=== PATIENT | female | born 1985 | race Asian ===

== ENCOUNTER 2017-03-17 04:30 | Inpatient (IN) | payer OTHER ==
[2017-03-17] MEDS: ELECTROLYTE-148 SOLN 1,000 ML IV SCH ×2 (05:00→10:08)
[2017-03-17] MEDS ORDERED: BUTORPHANOL TARTRATE 1 MG/ML VIAL IVPB ONE (05:26)
[2017-03-17] MEDS ORDERED: PROMETHAZINE HCL 25 MG/1 ML VIAL IVPB ONE (05:26)
[2017-03-17 05:45] LABS: BASOPHIL 0.5 % (0-2.0); EOSINOPHIL 0.5 % (0-4.5); MCH 23.4 pg (25.7-33.7); MCHC 32.6 g/dl (32.0-36.0); MEAN CELL VOLUME 71.9 fl (80-96); MEAN PLT VOLUME 7.9 fl (7.5-11.1); NEUTROPHILS 81.2 % (42.8-82.8); PLATELET COUNT 280 K/MM3 (134-434); RDW 16.7 % (11.6-15.6); WHITE BLOOD COUNT 10.6 K/mm3 (4.0-10.0)
[2017-03-17 05:47] VITALS: BMI 33.8
[2017-03-17 05:57] LABS: INR 0.93 (0.82-1.09); PROTHROMBIN TIME (PATIENT) 10.2 SEC (9.98-11.88)
[2017-03-17 06:07] LABS: ANION GAP 13 (8-16); CALCIUM 8.4 mg/dL (8.5-10.1); CO2 19 mmol/L (21-32); CREATININE 0.6 mg/dL (0.55-1.02); GLUCOSE,RANDOM 107 mg/dL (74-106)
--- NOTE | 2017-03-17 07:19 | HP ---
Past Medical History - Primary Care Physician PCP:: Damaris Jesus - Admission Chief Complaint: 31 yo P2 @ 39.3 wks with contractions, no VB, no LOF, + FM History Source: Patient Limitations to Obtaining History: No Limitations - Past Medical History ...: 3 ...Para: 2 ...Term: 2 ...LMP: 06/07/16 ... Weeks Gestation by Dates: 39.3 ...EDC by Dates: 03/13/17 ...EDC by Sono: 03/21/17 Additional OB History: Morbid obesity - Past Surgical History Past Surgical History: Yes: None Hx Myomectomy: No Hx Transabdominal Cerclage: No - Smoking History Smoking history: Never smoked Have you smoked in the past 12 months: No - Alcohol/Substance Use Hx Alcohol Use: No History of Substance Use: reports: None - Social History History of Recent Travel: No Home Medications - Allergies Allergies/Adverse Reactions: Allergies Allergy/AdvReac Type Severity Reaction Status Date / Time apple Allergy Intermediate Itching Verified 09/06/15 08:13 No Known Drug Allergies Allergy Verified 09/06/15 08:13 - Home Medications Home Medications: Ambulatory Orders Tablet 1 tab PO DAILY 09/05/15 Physical Exam - Maternity Vital Signs: Vital Signs Temperature 98.4 F 03/17/17 06:00 Pulse Rate 104 H 03/17/17 07:00 Respiratory Rate 20 03/17/17 07:00 Blood Pressure 124/78 03/17/17 07:00 O2 Sat by Pulse Oximetry (%) Constitutional: Yes: Well Nourished Eyes: Yes: WNL HENT: Yes: WNL Neck: Yes: WNL Cardiovascular: Yes: WNL Breast(s): Yes: WNL - Abdominal Exam/OB Fundal Height: 39 (EFW 7lb) Number of Fetuses: Single Presentation: Vertex Contractions: Yes Regularity: Regular Intensity: Mild/Mod Monitor Mode: External Heart Rate Location: Midline Category: I Accelerations: Uniform Decelerations: None - Vaginal Exam/OB Vaginal Bleediing: No Dilatation (cm): 5 Effacement (%): 90% Amniotic Membrane Status: Intact Presentation: Vertex/Position Station: -3 - Physical Exam Musculoskeletal: Yes: WNL Extremities: Yes: WNL Edema: No Integumentary: Yes: WNL ...Motor Strength: WNL Psychiatric: Yes: WNL - Labs Lab Results: CBC, BMP 03/17/17 05:10 03/17/17 05:10 Assessment/Plan 31yo P2 @ 39.3wks in labor Admit to L&D MF status reassuring Labs, IVF Pain management as per patient request Anticipate
[2017-03-17] MEDS ORDERED: FENTANYL/BUPIVACAINE/NS/PF - PCEA - 50 ML DISP.SYRIN EP SCH (08:15)
[2017-03-17] MEDS ORDERED: TUBERCULIN PPD 5 TU/0.1ML SYRINGE (IN PATIENT USE ONLY) ID ONE (08:30)
[2017-03-17 10:53] LABS: HIV 1 & 2 AB NEGATIVE; HIV 1 AGp24 NEGATIVE
[2017-03-17] MEDS: D5W-LR W/ 20 UNITS OXYTOCIN 1,000 ML IV SCH ×2 (11:45→13:12)
[2017-03-17] MEDS ORDERED: BISACODYL 10 MG SUPP.RECT RC PRN (11:58)
[2017-03-17] MEDS ORDERED: WITCH HAZEL 50% (TUCKS) 40 PAD/JAR PAD TP PRN (11:58)
[2017-03-17] MEDS ORDERED: BENZOCAINE 28 GM HEMORRHOIDAL OINTMENT TP PRN (11:58)
[2017-03-17] MEDS ORDERED: BENZOCAINE 20% 57 GM BOTTLE TP PRN (11:58)
[2017-03-17] MEDS ORDERED: METHYLERGONOVINE MALEATE 0.2 MG/1 ML AMP IM PRN (11:58)
--- NOTE | 2017-03-17 12:06 | PN ---
Delivery - Delivery Vaginal Delivery: No Problems, Spontaneous Type of Anesthesia: Epidural Episiotomy/Laceration: None, 1st degree EBL (cc): 200 Delivery, Single - Stages of Labor Date 1st Stage Initiatied: 03/16/17 Time 1st Stage Initiated: 23:55 Date 2nd Stage Initiated: 03/17/17 Time 2nd Stage Initiated: 11:30 Date of Delivery: 03/17/17 Time of Delivery: 11:38 Date Placenta Delivered: 03/17/17 Time Placenta Delivered: 11:45 Placenta: Yes: Spontaneous - Condition of Used Car Manager/Switchboard And Control Room Operator Present: No Gender: Male Position: OA - 1 Minute Total Score: 8 5 Minutes Total Score: 9 - Feeding Plan Initial Plan: Elected not to breastfeed exclusively throughout hospitalization Benefits of Exclusively reinforced: Yes Remarks - Remarks Remarks: Uncomplicated delivery of the head and shoulders no cord around the neck + meconium noted, baby vigorous attended by the nurses
[2017-03-17] MEDS: IBUPROFEN 600 MG TABLET (FP) PO PRN (17:03)
[2017-03-17] MEDS: ACETAMINOPHEN 325 MG TABLET (FP) PO PRN (17:04)
[2017-03-17] MEDS: FERROUS SO4 325 MG TABLET (FP) PO SCH (21:21)
[2017-03-18] MEDS: IBUPROFEN 600 MG TABLET (FP) PO PRN ×2 (02:08→21:12)
[2017-03-18] MEDS: ACETAMINOPHEN 325 MG TABLET (FP) PO PRN ×2 (02:09→21:11)
[2017-03-18 08:18] LABS: BASOPHIL 0.9 % (0-2.0); EOSINOPHIL 0.5 % (0-4.5); MCH 23.5 pg (25.7-33.7); MEAN CELL VOLUME 73.4 fl (80-96); MEAN PLT VOLUME 7.4 fl (7.5-11.1); NEUTROPHILS 76.2 % (42.8-82.8); PLATELET COUNT 249 K/MM3 (134-434); RDW 16.9 % (11.6-15.6)
--- NOTE | 2017-03-18 08:24 | PN ---
Post Progress Note - Subjective Subjective: No complaints Post Day: 1 Type of Delivery: Vital Signs: Vital Signs Temperature 97.8 F 03/18/17 06:13 Pulse Rate 93 H 03/18/17 06:13 Respiratory Rate 20 03/18/17 06:13 Blood Pressure 106/67 03/18/17 06:13 O2 Sat by Pulse Oximetry (%) 100 03/17/17 12:45 Breast Exam: Yes: Soft Uterus: Yes: Fundus Firm, Fundus below umbilicus, Non-tender Incision: Yes: Dressing dry and intact Abdomen/GI: Yes: Abdomen soft, Passing flatus, Tolerating PO Lochia: Yes: Rubra Lochia, amount: Small Extremities: Yes: Calves non-tender, Edema (trace) Perineum: Yes: Intact Activity: Ambulating - Labs Labs: CBC WBC 10.6 K/mm3 (4.0-10.0) H 03/17/17 05:10 RBC 4.81 M/mm3 (3.60-5.2) 03/17/17 05:10 Hgb 11.3 GM/dL (10.7-15.3) 03/17/17 05:10 Hct 34.5 % (32.4-45.2) 03/17/17 05:10 MCV 71.9 fl (80-96) L 03/17/17 05:10 MCH 23.4 pg (25.7-33.7) L 03/17/17 05:10 MCHC 32.6 g/dl (32.0-36.0) 03/17/17 05:10 RDW 16.7 % (11.6-15.6) H 03/17/17 05:10 Plt Count 280 K/MM3 (134-434) D 03/17/17 05:10 MPV 7.9 fl (7.5-11.1) 03/17/17 05:10 Neutrophils % 81.2 % (42.8-82.8) 03/17/17 05:10 Lymphocytes % 12.3 % (8-40) 03/17/17 05:10 Monocytes % 5.5 % (3.8-10.2) 03/17/17 05:10 Eosinophils % 0.5 % (0-4.5) 03/17/17 05:10 Basophils % 0.5 % (0-2.0) 03/17/17 05:10 Assessment/Plan 31yo P3 s/p , doing well stable, afebrile. care instructions reviewed. Continue routine care. Ambulation encouraged Discharge instruction reviewed.
[2017-03-18] MEDS: PRENATAL VITAMINS W/ FOLIC ACID TABLET (FP) PO SCH (10:00)
[2017-03-18] MEDS: FERROUS SO4 325 MG TABLET (FP) PO SCH ×2 (10:00→21:11)
--- NOTE | 2017-03-18 10:32 | PN ---
Progress Note (short form) - Note Progress Note: Patient states desires circumcision for . Discussed risks including infection, bleeding, damage to tip of penis, and unsatisfactory result, resulting in surgical repair or repeat circumcision. Patient expressed understanding and consents to procedure. Reviewed infants chart, normal genitalia per investor relations director, Dr. Tejeda
[2017-03-18 21:51] VITALS: PULSE 100
[2017-03-18] MEDS ORDERED: SENNOSIDES/DOCUSATE COMBO (SENNA PLUS) TABLET (UD) PO PRN (22:00)
--- NOTE | 2017-03-19 01:05 | PN ---
Post Progress Note - Subjective Subjective: Patient without acute complaints. Reports tolerating oral intake without nausea or vomiting. Ambulating without dizziness. Denies fevers or chills. Pain well controlled with oral pain medication. without difficulty. Passing flatus. Post Day: 3 Type of Delivery: Vital Signs: Vital Signs Temperature 97.6 F 03/18/17 21:48 Pulse Rate 100 H 03/18/17 21:48 Respiratory Rate 20 03/18/17 21:48 Blood Pressure 97/56 03/18/17 21:48 O2 Sat by Pulse Oximetry (%) 100 03/17/17 12:45 Breast Exam: Yes: Engorged Uterus: Yes: Fundus Firm, Fundus below umbilicus Abdomen/GI: Yes: Abdomen soft, Passing flatus, Tolerating PO. No: Abdominal Distention, Tender Lochia: Yes: Serosa Extremities: Yes: Edema (trace) Activity: Ambulating - Labs Labs: CBC WBC 13.0 K/mm3 (4.0-10.0) H 03/18/17 07:45 RBC 4.55 M/mm3 (3.60-5.2) 03/18/17 07:45 Hgb 10.7 GM/dL (10.7-15.3) 03/18/17 07:45 Hct 33.4 % (32.4-45.2) 03/18/17 07:45 MCV 73.4 fl (80-96) L 03/18/17 07:45 MCH 23.5 pg (25.7-33.7) L 03/18/17 07:45 MCHC 32.0 g/dl (32.0-36.0) 03/18/17 07:45 RDW 16.9 % (11.6-15.6) H 03/18/17 07:45 Plt Count 249 K/MM3 (134-434) 03/18/17 07:45 MPV 7.4 fl (7.5-11.1) L 03/18/17 07:45 Neutrophils % 76.2 % (42.8-82.8) 03/18/17 07:45 Lymphocytes % 16.6 % (8-40) D 03/18/17 07:45 Monocytes % 5.8 % (3.8-10.2) 03/18/17 07:45 Eosinophils % 0.5 % (0-4.5) 03/18/17 07:45 Basophils % 0.9 % (0-2.0) 03/18/17 07:45 Assessment/Plan 31 yo PPD # 2 s/p , afebrile, vital signs stable, doing well 1. Patient stable for discharge home today. 2. Patient encouraged to contact MD for: - Severe pain not controlled by oral pain medication - Fevers or chills - Nausea or vomiting, intolerance of oral intake 3. Patient to follow up in office in 4-6 weeks for visit
[2017-03-19 08:27] VITALS: BP 112/77; TEMP 98
[2017-03-19] MEDS: ACETAMINOPHEN 325 MG TABLET (FP) PO PRN (09:06)
[2017-03-19] MEDS: PRENATAL VITAMINS W/ FOLIC ACID TABLET (FP) PO SCH (09:06)
[2017-03-19] MEDS: FERROUS SO4 325 MG TABLET (FP) PO SCH (09:06)
[2017-03-19] MEDS: IBUPROFEN 600 MG TABLET (FP) PO PRN (09:07)
== END 2017-03-19 10:40 | disposition home or self-care (01) | DRG 775 ==
LOC: JLDR 04:30 → J3W 13:50
PROVIDERS: ADMIT Obstetrics & Gynecology; ATTEND Obstetrics & Gynecology
PROC: 10E0XZZ Delivery of Products of Conception, External Approach (ICD-10-PCS; principal; 2017-03-17)
PROC: 0HQ9XZZ Repair Perineum Skin, External Approach (ICD-10-PCS; 2017-03-17)
PROC: 0W8NXZZ Division of Female Perineum, External Approach (ICD-10-PCS; 2017-03-17)
DX: O70.0 First degree perineal laceration during delivery (principal); Z3A.39 39 weeks gestation of pregnancy; Z37.0 Single live birth
CPT/HCPCS: 36415; 59409; 80048; 85025; 85610; 85730; 86593; 86850; 86900; 86901; 87389

== ENCOUNTER → 2022-04-09 | Day surgery (SDC) | payer OTHER | END | disposition home or self-care (01) | LOC: JRADUS-SUR 08:45 | PROVIDERS: ATTEND Midwife | PROC: 07D53ZX Extraction of Right Axillary Lymphatic, Percutaneous Approach, Diagnostic (ICD-10-PCS; principal; 2022-04-09) | PROC: 0H9T3ZX Drainage of Right Breast, Percutaneous Approach, Diagnostic (ICD-10-PCS; 2022-04-09) | DX: C50.411 Malignant neoplasm of upper-outer quadrant of right female breast (principal); C77.3 Secondary and unspecified malignant neoplasm of axilla and upper limb lymph nodes; Z17.0 Estrogen receptor positive status [ER+] | CPT/HCPCS: 19083; 19084; 77065-TC; 87899; 88305-TC; 88342-TC; A4648 ==